=== PATIENT | male | born 1955 | race Caucasian/White ===

== ENCOUNTER 2016-07-01 07:55 | Day surgery (SDC) | payer BC ==
[~2016-07-01 07:55] MED LIST: Metoclopramide 10 MG/2 ML SDV IV PRN; Sodium Chloride 0.9% 1,000 ML IV SCH; Sodium Chloride 0.9% 10 ML Syringe FLUSH PRN
[2016-07-01 11:47] VITALS: BP 130/83
--- NOTE | 2016-07-01 19:08 | OR ---
DATE OF OPERATION: 07/01/2016 PREOPERATIVE DIAGNOSIS: Screening colonoscopy. POSTOPERATIVE DIAGNOSES: 1. Ascending colon polyp. 2. Otherwise normal colonoscopy. OPERATION: Screening colonoscopy. COMPLICATIONS: None. DRAINS: None. SPECIMENS: Ascending colon polyp. ESTIMATED BLOOD LOSS: Minimal. ANESTHESIA: General propofol anesthesia. INDICATION: Mr. Lincoln is a 60-year-old gentleman who is here for his primary screening colonoscopy. He is considered high risk due to a first-degree relative with colon cancer. The above-mentioned procedure was explained. The risks, benefits, and complications were explained. The patient understood and agreed, and he was brought to the operating room. DESCRIPTION OF PROCEDURE: The patient was brought to the operating room and placed in a left lateral decubitus position on the operating room table. Satisfactory general propofol anesthesia was administered. We began by performing a rectal examination, which is within normal limits. We then placed the endoscope by finger introduction into the rectum and subsequently advanced this to the level of the cecum. Cecum was identified by the ileocecal valve, the appendiceal orifice, as well as the cecal strap. Careful evaluation of the mucosa was performed on withdrawal, which revealed no significant abnormalities. No neoplastic growths. No diverticula or telangiectasias. There was a polyp in the ascending colon. This was a small, broad-based, and was removed very easily with a cold biopsy polypectomy. All fragments were retrieved and the polyp was completely removed. Hemostasis was satisfactory. No other findings in the remainder of the colon. We then performed a retroflexion maneuver in the rectum, which revealed no significant findings. The colon was decompressed and the endoscope was withdrawn. The patient tolerated the procedure well. There were no complications. Instrument count was correct. The patient was awoken in the OR and taken to PACU for recovery. KITTY/AMERICO /[id number]
== END 2016-07-01 11:40 | disposition home or self-care (01) ==
LOC: LB.SDS 07:55
PROVIDERS: ATTEND Surgery
DX: Z12.11 Encounter for screening for malignant neoplasm of colon (principal); D12.2 Benign neoplasm of ascending colon; I10 Essential (primary) hypertension; Z79.899 Other long term (current) drug therapy
CPT/HCPCS: 45380; 82962; 88305; J7040

== ENCOUNTER 2020-06-25 07:53 | Day surgery (SDC) | payer MEDICARE ==
[2020-06-25] MEDS ORDERED: Metoclopramide 10 MG/2 ML SDV IV PRN (08:00)
[2020-06-25] MEDS: Sodium Chloride 0.9% 1,000 ML IV SCH (08:25)
[2020-06-25] MEDS ORDERED: Propofol 200 MG/20 ML SDV ONE (08:58)
[2020-06-25 09:46] VITALS: BP 116/68; PULSE 59
--- NOTE | 2020-06-25 12:09 | OR ---
DATE OF OPERATION: 06/25/2020 SURGEON: Devante Cantu MD PREOPERATIVE DIAGNOSIS: Chronic diarrhea. POSTOPERATIVE DIAGNOSIS: Chronic diarrhea. PROCEDURE PERFORMED: Colonoscopy with biopsies. ANESTHESIA: MAC. ESTIMATED BLOOD LOSS: Minimal. COMPLICATIONS: None. INDICATION FOR THE PROCEDURE: The patient is a 64-year-old male who has had a history of chronic diarrhea for the past year or two, has had negative stool studies to date. Last colonoscopy was 4 years ago and was unremarkable. The patient is brought to the OR today for colonoscopy. DESCRIPTION OF PROCEDURE: Informed consent was obtained from the patient. The patient was taken to the operating room, and placed on table in left lateral decubitus position. Monitored anesthesia care was administered. Digital rectal exam performed, it was normal. Colonoscope then advanced through the anus, directed toward the cecum. Cecum was reached and identified by appendiceal orifice and ileocecal valve. The ileocecal valve was intubated and terminal ileum did appear normal. Colonoscope then slowly withdrawn. Multiple cold forceps biopsies were taken throughout the colon to check in for microscopic colitis. The colon was also otherwise unremarkable. Colonoscope then withdrawn. FINDINGS: Normal terminal ileum, normal colon. Multiple biopsies taken. RECOMMENDATIONS: We will follow up on biopsies, and if positive for microscopic colitis, would treat with oral steroids. If negative, would recommend repeat screening colonoscopy in 10 years and symptomatic relief for his diarrhea. MONE/AMERICO /[id number]
== END 2020-06-25 10:33 | disposition home or self-care (01) ==
LOC: LB.SDS 07:53
PROVIDERS: ATTEND Surgery
DX: K52.9 Noninfective gastroenteritis and colitis, unspecified (principal); K63.89 Other specified diseases of intestine; I10 Essential (primary) hypertension; E11.9 Type 2 diabetes mellitus without complications; E78.00 Pure hypercholesterolemia, unspecified; E78.5 Hyperlipidemia, unspecified
CPT/HCPCS: 82962; J2704; J7030

== ENCOUNTER 2020-09-06 13:19 | Emergency (ER) | payer MEDICARE ==
[2020-09-06 13:41] VITALS: BP 131/80; PULSE 85
[2020-09-06] MEDS ORDERED: Acetaminophen/HYDROcodone 325-5 MG Tab ONE (14:00)
--- NOTE | 2020-09-06 15:43 | ER ---
HISTORY OF PRESENT ILLNESS: A 65-year-old male who comes in with his with complaints of falling at their camp site. He landed on an extension cord. He injured the left anterior chest wall and his left wrist. The patient states it hurts when he takes a deep breath. He is concerned that he broke some ribs. He denies any head or neck injuries and has not been nauseated or vomiting. OBJECTIVE: GENERAL APPEARANCE: The patient is awake and alert. No obvious distress. VITAL SIGNS: Reviewed. He is afebrile. Blood pressure 131/80, O2 saturations are 100%. CHEST: The patient has tenderness with palpation over the left upper chest wall but below the clavicle. Skin is intact. He can take about 50% of a deep breath before the pain stops him. I can hear a little bit of air exchange throughout the left lung castanon. EXTREMITIES: Examining the left wrist reveals skin is intact. There is no pain with palpation of the wrist but with flexion and extension, it is tender. LABORATORY DATA AND X-RAY: Left wrist x-rays were obtained. I can see a lucency through the distal radius, but it does not appear to be anything new. I do not see any other acute abnormalities with the wrist. Looking at the rib x-rays, I do not see any obvious rib fractures. DIAGNOSIS: Contusion injury to chest wall and left wrist. TREATMENT PLAN: The patient was given a wrist brace. He is to wear this for few days. He will be given Motrin or told to use Motrin. He tells me that he has this at home 600 mg t.i.d. for 3 or 4 days and then start weaning down off it. I will also give him some Duncan tablets to use p.r.n., and lastly, we will call with the radiologist report when it is available involving the rib x-rays. The patient agrees with the treatment plan and has no further questions. CRS/MODL /[id number]
--- NOTE | 2020-09-07 09:24 | CR ---
Date of Service: 09/06/20 Clinical Data: chest wall pain after falling. LEFT RIBS: No priors. There are mildly displaced fractures of the left 7th and 6th ribs laterally. No other rib abnormalities. No pneumothorax. No pleural effusion. There is degenerative disk disease throughout the thoracic spine. [id number] [facility]
--- NOTE | 2020-09-07 10:22 | CR ---
DATE OF SERVICE: 09/06/2020 CLINICAL DATA: Fall Left wrist: There are no priors. There are osteoarthritic changes involving multiple joints. The base of the 1st metacarpal is partially subluxed laterally with respect to the greater multangular carpal bone. No acute fracture or dislocation. No lytic or blastic bone lesions. There are vascular calcifications in the soft tissues. MTDD
== END 2020-09-06 14:05 | disposition home or self-care (01) ==
LOC: LB.ED 13:19
DX: S20.212A Contusion of left front wall of thorax, initial encounter (principal); S60.212A Contusion of left wrist, initial encounter; W18.39XA Other fall on same level, initial encounter
CPT/HCPCS: 71100; 73110; 99283; A9270

== ENCOUNTER 2020-10-16 14:26 | Emergency (ER) | payer MEDICARE ==
[2020-10-16 15:58] VITALS: BP 128/68; PULSE 75
--- NOTE | 2020-10-16 16:38 | EDM.PDOC ---
ED HPI GENERAL MEDICAL PROBLEM - General Stated Complaint: POSSIBLE STROKE Time Seen by Provider: 10/16/20 15:00 - History of Present Illness INITIAL COMMENTS - FREE TEXT/NARRATIVE: Pt comes to the ER today C/O multiple short episodes of feeling funny. He feels like he is blacking out or a second or 2. It also feels like an electrical current is in his body. No C/O chest pain - H/A - cough SOB, or recent injury. He has been evaluated already once a couple days ago for this with no acute findings. He is not taking any new meds. - Related Data Allergies Allergy/AdvReac Type Severity Reaction Status Date / Time No Known Allergies Allergy Verified 09/06/20 13:35 Home Meds: Home Meds Cholecalciferol (Vitamin D3) [Vitamin D3] 1,000 unit PO DAILY 02/20/16 [History] Cinnamon Bark [Cinnamon] 500 mg PO DAILY 02/20/16 [History] Fenofibrate 160 mg PO DAILY 02/20/16 [History] Garlic 1,000 mg PO DAILY 02/20/16 [History] Lovastatin [Mevacor] 80 mg PO QPM 02/20/16 [History] [place]-3/DHA/Epa/Fish Oil [Fish Oil 1,000 mg Softgel] 1 each PO DAILY 02/20/16 [History] glipiZIDE [Glipizide] 10 mg PO BIDMEALS 02/20/16 [History] metFORMIN [Glucophage] 1,000 mg PO BIDMEALS 02/20/16 [History] tadalafiL [Cialis] 5 mg PO DAILY PRN 02/20/16 [History] lisinopriL [Lisinopril] 10 mg PO DAILY 07/25/20 [History] Past Medical History HEENT History: Reports: Hard of Hearing Cardiovascular History: Reports: High Cholesterol, Hypertension Respiratory History: Reports: None Gastrointestinal History: Reports: None Musculoskeletal History: Reports: Back Pain, Chronic, Other (See Below) Other Musculoskeletal History: back surgery Endocrine/Metabolic History: Reports: Diabetes, Type II Oncologic (Cancer) History: Reports: None - Past Surgical History HEENT Surgical History: Reports: Other (See Below) Other HEENT Surgeries/Procedures: surgery to fix broken nose Other Neurological Surgeries/Procedures: no sensation changes in the LE. no pain in LEs Social & Family History - Family History Family Medical History: No Pertinent Family History Oncologic: Reports: Colon Other Oncologic Family History: brother - Caffeine Use Caffeine Use: Reports: Coffee ED ROS GENERAL - Review of Systems Review Of Systems: Comprehensive ROS is negative, except as noted in HPI. Neurological: Reports: Other (episodes of tingling and feels like he is blacking out for 1-2 seconds.) ED EXAM, NEURO - Physical Exam Exam: See Below Eye Exam: Bilateral Eye: EOMI, PERRL Neurological: Alert, Normal Mood/Affect, CN II-XII Intact, Normal Gait, No Motor/Sensory Deficits Course - Vital Signs Last Recorded V/S: Last Vital Signs Temp Pulse 75 10/16/20 15:55 Resp 16 10/16/20 15:55 BP 128/68 10/16/20 15:55 Pulse Ox 97 10/16/20 15:55 - Orders/Labs/Meds Orders: Active Orders 24 hr Category Date Time Status EKG Documentation Completion [RC] ASDIRECTED Care 10/16/20 15:21 Active Head wo Cont [CT] Stat Exams 10/16/20 14:39 Taken Labs: Laboratory Tests 10/16/20 10/16/20 10/16/20 Range/Units 15:44 15:44 15:44 WBC 8.0 (4.0-11.0) K/uL RBC 4.44 L (4.50-6.50) M/uL Hgb 13.6 (13.0-18.0) g/dL Hct 40.0 (40.0-54.0) % MCV 90 (76-96) fL MCH 30.6 (27.0-32.0) pg MCHC 34.0 (31.0-35.0) g/dL RDW 13.5 (11.0-16.0) % Plt Count 235 (150-400) K/uL MPV 10.6 H (6.0-10.0) fL Neut % (Auto) 61.7 (45.0-70.0) % Lymph % (Auto) 22.5 (20.0-40.0) % [place] % (Auto) 9.2 (3.0-10.0) % Eos % (Auto) 5.6 H (1.0-5.0) % Baso % (Auto) 1.0 H (0.0-0.5) % Neut # (Auto) 4.92 (2.00-7.50) K/uL Lymph # (Auto) 1.79 (1.50-4.00) K/uL [place] # (Auto) 0.73 (0.20-0.80) K/uL Eos # (Auto) 0.45 H (0.04-0.40) K/uL Baso # (Auto) 0.08 (0.02-0.10) K/uL D-Dimer, Quantitative < 100 (0-400) ng/mL Sodium 134 L (136-145) mmol/L Potassium 4.3 (3.5-5.1) mmol/L Chloride 100 (98-107) mmol/L Carbon Dioxide 27.9 (21.0-32.0) mmol/L Anion Gap 10.4 (5.0-15.0) mmol/L BUN 16 (8-26) mg/dL Creatinine 1.41 H (0.70-1.30) mg/dL Est Cr Clr Drug Dosing 50.84 mL/min Estimated GFR (MDRD) 50 L (>60) MLS/MIN BUN/Creatinine Ratio 11.3 (6-25) Glucose 156 H D (74-100) mg/dL Calcium 9.6 (8.5-10.1) mg/dL Total Bilirubin 0.3 (0.0-1.0) mg/dL AST 15 (15-37) U/L ALT 23 (12-78) U/L Alkaline Phosphatase 63 (46-116) U/L Troponin I < 0.017 (0.000-0.060) ng/mL Total Protein 7.0 (6.4-8.2) g/dL Albumin 3.9 (3.4-5.0) g/dL Globulin 3.1 (2.2-4.2) g/dL Albumin/Globulin Ratio 1.3 (0.8-2.0) - Re-Assessments/Exams Free Text/Narrative Re-Assessment/Exam: 10/16/20 16:37 V.S are nml. Head CT is negative. Pt has had several episodes while in the ER, but are hard to see. One episode he let out a small gasp, but said it was over right after. I did consult his clinic provider who will get a heart monitor applied and agreed to refer him to Neurology JASSI. 10/16/20 16:40 Departure - Departure Time of Disposition: 16:30 Disposition: Home, Self-Care 01 Condition: Good Clinical Impression: Neurological deficit, transient - Discharge Information *PRESCRIPTION DRUG MONITORING PROGRAM REVIEWED*: Not Applicable *COPY OF PRESCRIPTION DRUG MONITORING REPORT IN PATIENT DILIP: Not Applicable Instructions: Warning Signs of a Stroke, Ambulatory Cardiac Monitoring Referrals: PCP,None [Primary Care Provider] - Additional Instructions: appointment being scheduled with Neurology thru his clinic provider. return to ED if s/s worsen or if you would like to see a Neuro specialist prior to appointment next week. Take baby aspirin as directed. 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 Sepsis Event Note (ED) - Evaluation Sepsis Screening Result: No Definite Risk - Focused Exam Vital Signs: Vital Signs Pulse Resp BP Pulse Ox 10/16/20 15:55 75 16 128/68 97 - My Orders Last 24 Hours: My Active Orders 10/16/20 14:39 Head wo Cont [CT] Stat 10/16/20 15:21 EKG Documentation Completion [RC] ASDIRECTED - Assessment/Plan Last 24 Hours: My Active Orders 10/16/20 14:39 Head wo Cont [CT] Stat 10/16/20 15:21 EKG Documentation Completion [RC] ASDIRECTED
--- NOTE | 2020-10-16 16:51 | CT ---
DATE OF SERVICE: 10/16/2020 CLINICAL DATA: Possible stroke Unenhanced brain CT: Multi slice acquisition through the brain without IV contrast was performed. Comparison is made to a prior exam dated 15 October 2020. No changes. No acute intracranial abnormalities. MTDD
== END 2020-10-16 16:00 | disposition home or self-care (01) ==
LOC: LB.ED 14:26
DX: R29.818 Other symptoms and signs involving the nervous system (principal); E78.00 Pure hypercholesterolemia, unspecified; I10 Essential (primary) hypertension; E11.9 Type 2 diabetes mellitus without complications; Z79.84 Long term (current) use of oral hypoglycemic drugs; Z79.899 Other long term (current) drug therapy
CPT/HCPCS: 36415; 70450; 80053; 84484; 85025; 85379; 93005; 99284-25

== ENCOUNTER 2020-10-24 16:54 | Emergency (ER) | payer MEDICARE ==
[2020-10-24] MEDS ORDERED: Sodium Chloride 0.9% 10 ML Syringe FLUSH PRN (17:11)
[2020-10-24] MEDS: Aspirin 81 MG Tab.Chew PO ONE ×2 (17:30→18:20)
--- NOTE | 2020-10-24 17:57 | EDM.PDOC ---
ED HPI GENERAL MEDICAL PROBLEM - General Chief Complaint: Neuro Symptoms/Deficits Stated Complaint: possible stroke Time Seen by Provider: 10/24/20 17:11 Source of Information: Reports: Patient, Significant Other History Limitations: Reports: No Limitations - History of Present Illness INITIAL COMMENTS - FREE TEXT/NARRATIVE: pt presents to the ER accompanied by significant other who also provides history. pt states right arm spasticity and feeling right sided weakness as well as some dysarthria. onset he states was approx. 3 weeks ago only occurring intermittently but today at 1300 the spasticity and the dysarthria became significantly more prominent and continuous without relief. pt denies fever, chills, nausea, vomiting, recent head injury, changes in vision. pt states no alcohol intake for 40 years, no recent street drug use. he does chew tobacco. he has had previous head CT without abnormality. MRI on on outpatient basis without results at this time. medical hx of DM ii controlled with glipizide and metformin; and htn on lisinopril. - Related Data Allergies Allergy/AdvReac Type Severity Reaction Status Date / Time No Known Allergies Allergy Verified 09/06/20 13:35 Home Meds: Home Meds Cholecalciferol (Vitamin D3) [Vitamin D3] 1,000 unit PO DAILY 02/20/16 [History] Cinnamon Bark [Cinnamon] 500 mg PO DAILY 02/20/16 [History] Fenofibrate 160 mg PO DAILY 02/20/16 [History] Garlic 1,000 mg PO DAILY 02/20/16 [History] Lovastatin [Mevacor] 80 mg PO QPM 02/20/16 [History] [place]-3/DHA/Epa/Fish Oil [Fish Oil 1,000 mg Softgel] 1 each PO DAILY 02/20/16 [History] glipiZIDE [Glipizide] 10 mg PO BIDMEALS 02/20/16 [History] metFORMIN [Glucophage] 1,000 mg PO BIDMEALS 02/20/16 [History] tadalafiL [Cialis] 5 mg PO DAILY PRN 02/20/16 [History] lisinopriL [Lisinopril] 10 mg PO DAILY 07/25/20 [History] Past Medical History HEENT History: Reports: Hard of Hearing Cardiovascular History: Reports: High Cholesterol, Hypertension Respiratory History: Reports: None Gastrointestinal History: Reports: None Musculoskeletal History: Reports: Back Pain, Chronic, Other (See Below) Other Musculoskeletal History: back surgery Endocrine/Metabolic History: Reports: Diabetes, Type II Oncologic (Cancer) History: Reports: None - Past Surgical History HEENT Surgical History: Reports: Other (See Below) Other HEENT Surgeries/Procedures: surgery to fix broken nose Other Neurological Surgeries/Procedures: no sensation changes in the LE. no pain in LEs Social & Family History - Family History Family Medical History: No Pertinent Family History Oncologic: Reports: Colon Other Oncologic Family History: brother - Caffeine Use Caffeine Use: Reports: Coffee ED ROS GENERAL - Review of Systems Review Of Systems: Comprehensive ROS is negative, except as noted in HPI. ED EXAM, GENERAL - Physical Exam Exam: See Below Exam Limited By: No Limitations General Appearance: Alert, WD/WN Eye Exam: Bilateral Eye: EOMI, PERRL Nose: Normal Inspection, Normal Mucosa Throat/Mouth: Normal Inspection, Normal Teeth, Normal Gums, Normal Oropharynx, Other (dysarthria) Head: Atraumatic, Normocephalic Respiratory/Chest: No Respiratory Distress, Lungs Clear, Normal Breath Sounds, No Accessory Muscle Use, Chest Non-Tender Cardiovascular: Normal Peripheral Pulses, Regular Rate, Rhythm, No Edema, No Murmur Peripheral Pulses: 2+: Brachial (L), Brachial (R), Posterior Tibial (L), Posterior Tibial (R) GI/Abdominal: Soft, Non-Tender Extremities: Non-Tender, No Pedal Edema, Normal Capillary Refill Neurological: Alert, Oriented, Normal Cognition, Abnormal Gait, Other (right arm ataxia, dysmetria. irregular spastic movements. R arm and leg slightly weaker than left but no drift on NIH.) Psychiatric: Normal Affect, Anxious Skin Exam: Warm, Dry, Intact, Normal Color, No Rash Lymphatic: No Adenopathy #1 Interpretation EKG Date: 10/24/20 Time: 17:54 Rhythm: NSR [place]: Normal P-Wave: Present QRS: Normal ST-T: Normal QT: Normal Comparison: No Change Course - Vital Signs Last Recorded V/S: Last Vital Signs Temp 97.6 F 10/24/20 18:41 Pulse 82 10/24/20 18:45 Resp 16 10/24/20 18:45 BP 140/76 10/24/20 18:45 Pulse Ox 98 10/24/20 18:45 - Orders/Labs/Meds Orders: Active Orders 24 hr Category Date Time Status Assess Neurological Status [RC] CONTINUOUS Care 10/24/20 17:11 Ordered Cardiac Monitoring [RC] CONTINUOUS Care 10/24/20 17:11 Ordered Communication Order [RC] STAT Care 10/24/20 17:11 Ordered EKG Documentation Completion [RC] ASDIRECTED Care 10/24/20 17:11 Ordered Height and Weight [RC] UPON Care 10/24/20 17:11 Ordered NIH Stroke Scale [RC] Q15M Care 10/24/20 17:11 Ordered NIH Stroke Scale [RC] STAT Care 10/24/20 17:11 Ordered Oxygen Therapy, ED [RC] ASDIRECTED Care 10/24/20 17:11 Ordered Vital Signs [RC] Q15M Care 10/24/20 17:11 Ordered [place] Bedside Swallow Assessment [RC] ASDIRECTED Care 10/24/20 17:11 Ordered Chest 1V Frontal [CR] Stat Exams 10/24/20 17:09 Ordered Head wo Cont [CT] Stat Exams 10/24/20 17:09 Ordered Sodium Chloride 0.9% [Saline Flush] Med 10/24/20 17:11 Active 10 ml FLUSH ASDIRECTED PRN Peripheral IV Insertion Adult [OM.PC] Stat Oth 10/24/20 17:11 Ordered Peripheral IV Insertion Adult [OM.PC] Stat Oth 10/24/20 17:11 Ordered Resuscitation Status Stat Resus Stat 10/24/20 17:11 Ordered EKG 12 Lead [EK] Routine Ther 10/24/20 17:09 Ordered Medication Orders Sodium Chloride (Sodium Chloride 0.9% 10 Ml Syringe) 10 ml FLUSH ASDIRECTED PRN PRN Reason: Keep Vein Open Last Admin: 10/24/20 18:40 Dose: 10 ml Documented by: AUSTYN Labs: Laboratory Tests 10/24/20 10/24/20 10/24/20 Range/Units 17:20 17:25 17:31 WBC 10.5 D (4.0-11.0) K/uL RBC 4.79 (4.50-6.50) M/uL Hgb 14.6 (13.0-18.0) g/dL Hct 41.8 (40.0-54.0) % MCV 87 (76-96) fL MCH 30.5 (27.0-32.0) pg MCHC 34.9 (31.0-35.0) g/dL RDW 13.1 (11.0-16.0) % Plt Count 273 (150-400) K/uL MPV 10.3 H (6.0-10.0) fL Neut % (Auto) 71.0 H (45.0-70.0) % Lymph % (Auto) 16.9 L (20.0-40.0) % [place] % (Auto) 9.3 (3.0-10.0) % Eos % (Auto) 2.0 (1.0-5.0) % Baso % (Auto) 0.8 H (0.0-0.5) % Neut # (Auto) 7.45 (2.00-7.50) K/uL Lymph # (Auto) 1.77 (1.50-4.00) K/uL [place] # (Auto) 0.97 H (0.20-0.80) K/uL Eos # (Auto) 0.21 (0.04-0.40) K/uL Baso # (Auto) 0.08 (0.02-0.10) K/uL PT 10.7 (9.0-11.5) sec INR 1.1 (1.0-3.5) APTT 24.8 (24.4-33.2) SECONDS Sodium 127 L (136-145) mmol/L Potassium 4.1 (3.5-5.1) mmol/L Chloride 96 L (98-107) mmol/L Carbon Dioxide 24.7 (21.0-32.0) mmol/L Anion Gap 10.4 (5.0-15.0) mmol/L BUN 15 (8-26) mg/dL Creatinine 1.22 (0.70-1.30) mg/dL Est Cr Clr Drug Dosing TNP Estimated GFR (MDRD) 59 L (>60) MLS/MIN BUN/Creatinine Ratio 12.3 (6-25) Glucose 151 H (74-100) mg/dL Calcium 9.0 (8.5-10.1) mg/dL Total Bilirubin 0.3 (0.0-1.0) mg/dL AST 20 (15-37) U/L ALT 23 (12-78) U/L Alkaline Phosphatase 58 (46-116) U/L Troponin I < 0.017 (0.000-0.060) ng/mL Total Protein 7.6 (6.4-8.2) g/dL Albumin 4.2 (3.4-5.0) g/dL Globulin 3.4 (2.2-4.2) g/dL Albumin/Globulin Ratio 1.2 (0.8-2.0) Meds: Medications Generic Name Dose Route Start Last Admin Trade Name Freq PRN Reason Stop Dose Admin Sodium Chloride 10 ml 10/24/20 17:11 10/24/20 18:40 Sodium Chloride 0.9% 10 Ml Syringe FLUSH 10 ml ASDIRECTED PRN Administration Keep Vein Open Discontinued Medications Generic Name Dose Route Start Last Admin Trade Name Freq PRN Reason Stop Dose Admin Aspirin 324 mg 10/24/20 17:11 10/24/20 18:20 Aspirin 81 Mg Tab.Chew PO 10/24/20 17:12 324 mg ONETIME ONE Administration Levetiracetam 500 mg/ Sodium 105 mls @ 400 mls/hr 10/24/20 19:06 Chloride IV 10/24/20 19:20 ONETIME ONE Lorazepam 2 mg 10/24/20 18:16 10/24/20 18:21 Lorazepam 2 Mg/Ml Sdv IVPUSH 10/24/20 18:17 2 mg ONETIME ONE Administration - Radiology Interpretation Free Text/Narrative:: no noted bleed, midline shift or mass effect. - Re-Assessments/Exams Free Text/Narrative Re-Assessment/Exam: NIH on arrival of 2: 1 for dysarthria and 1 for ataxia 1815: discussion with stroke neurology of [facility] who recommend 2mg of ativan and potential 2g 10/24/20 19:[address] Mares of [facility] who accepted pt for admission Departure - Departure Time of Disposition: 19:08 Disposition: DC/Tfer to Acute Hospital 02 Condition: Good Clinical Impression: New onset seizure, Hyponatremia - Discharge Information *PRESCRIPTION DRUG MONITORING PROGRAM REVIEWED*: No *COPY OF PRESCRIPTION DRUG MONITORING REPORT IN PATIENT DILIP: No Forms: ED Department Discharge Sepsis Event Note (ED) - Focused Exam Vital Signs: Vital Signs Temp Pulse Resp BP Pulse Ox 10/24/20 18:45 82 16 140/76 98 10/24/20 18:41 97.6 F 74 16 162/88 H 97 10/24/20 18:11 76 16 162/88 H 98 10/24/20 17:26 98.0 F 74 16 159/84 H 98 10/24/20 17:11 98.0 F 90 16 159/84 H 98 - Problem List & Annotations (1) Hyponatremia SNOMED Code(s): 03719410 Code(s): E87.1 - HYPO-OSMOLALITY AND HYPONATREMIA Status: Acute (2) New onset seizure SNOMED Code(s): 69866852 Code(s): R56.9 - UNSPECIFIED CONVULSIONS Status: Acute - Problem List Review Problem List Initiated/Reviewed/Updated: Yes - My Orders Last 24 Hours: My Active Orders 10/24/20 17:09 Chest 1V Frontal [CR] Stat Head wo Cont [CT] Stat EKG 12 Lead [EK] Routine 10/24/20 17:11 Assess Neurological Status [RC] CONTINUOUS Cardiac Monitoring [RC] CONTINUOUS Communication Order [RC] STAT EKG Documentation Completion [RC] ASDIRECTED Height and Weight [RC] UPON NIH Stroke Scale [RC] Q15M NIH Stroke Scale [RC] STAT Oxygen Therapy, ED [RC] ASDIRECTED Vital Signs [RC] Q15M [place] Bedside Swallow Assessment [RC] ASDIRECTED Sodium Chloride 0.9% [Saline Flush] 10 ml FLUSH ASDIRECTED PRN Peripheral IV Insertion Adult [OM.PC] Stat Peripheral IV Insertion Adult [OM.PC] Stat Resuscitation Status Stat - Assessment/Plan Last 24 Hours: My Active Orders 10/24/20 17:09 Chest 1V Frontal [CR] Stat Head wo Cont [CT] Stat EKG 12 Lead [EK] Routine 10/24/20 17:11 Assess Neurological Status [RC] CONTINUOUS Cardiac Monitoring [RC] CONTINUOUS Communication Order [RC] STAT EKG Documentation Completion [RC] ASDIRECTED Height and Weight [RC] UPON NIH Stroke Scale [RC] Q15M NIH Stroke Scale [RC] STAT Oxygen Therapy, ED [RC] ASDIRECTED Vital Signs [RC] Q15M [place] Bedside Swallow Assessment [RC] ASDIRECTED Sodium Chloride 0.9% [Saline Flush] 10 ml FLUSH ASDIRECTED PRN Peripheral IV Insertion Adult [OM.PC] Stat Peripheral IV Insertion Adult [OM.PC] Stat Resuscitation Status Stat Assessment:: assessment: hyponatremia; new onset seizure plan: hyponatremia of 127. will hold intervention due to BLS crew transport transport to [facility] accepting physician Dr. Mares for further evaluation, monitoring, and referrals as needed. ED course included CT head, EKG of sinus rhythm, negative CXR and 2mg ativan as well as 500mg keppra for seizure control.
[2020-10-24] MEDS ORDERED: LORazepam 2 MG/ML SDV IVPUSH ONE (18:16)
[2020-10-24 18:52] VITALS: BP 140/76; PULSE 82
[2020-10-24] MEDS ORDERED: levETIRAcetam 500 MG in Sodium Chloride 0.9% 100 ML IV ONE (19:06)
--- NOTE | 2020-10-26 07:32 | CT ---
DATE OF SERVICE: 10/24/20 CLINICAL DATA: neuro change UNENHANCED BRAIN CT: Multislice acquisition through the brain without IV contrast was performed. No priors. There is mild atrophy. There are periventricular lucencies bilaterally consistent with small vessel ischemic change. No masses or mass effect. No intracranial hemorrhage. No evidence of acute or subacute infarct. No osseous abnormalities. IMPRESSION: No acute intracranial abnormalities. [id number] [facility]
--- NOTE | 2020-10-26 07:41 | CR ---
DATE OF SERVICE: 10/24/20 CLINICAL DATA: neuro change AP CHEST: Comparison is made to a prior exam dated 10/14/20. The patient has taken a very poor inspiration. The heart size is within normal limits. There is subtle increased density in the right mid lung which may be an area of infiltrate or atelectasis. The lungs are otherwise clear. No pneumothorax. No pleural effusions. There are subacute fractures of the left 3rd and 4th ribs. [id number] [facility]
== END 2020-10-24 20:10 ==
LOC: LB.ED 16:54
DX: R56.9 Unspecified convulsions (principal); E87.1 Hypo-osmolality and hyponatremia; E78.00 Pure hypercholesterolemia, unspecified; I10 Essential (primary) hypertension; E11.9 Type 2 diabetes mellitus without complications; F17.220 Nicotine dependence, chewing tobacco, uncomplicated; Z79.84 Long term (current) use of oral hypoglycemic drugs; Z79.899 Other long term (current) drug therapy
CPT/HCPCS: 36415; 70450; 71045; 80053; 84484; 85025; 85610; 85730; 93005; 96374; 96375; 99285; A9270; J1953; J2060; A0425; A0429

== ENCOUNTER 2020-11-28 22:26 | Observation (INO) | payer MEDICARE ==
[2020-11-28] MEDS ORDERED: Aspirin 81 MG Tab.Chew PO STA (22:35)
[2020-11-28] MEDS ORDERED: Sodium Chloride 0.9% 10 ML Syringe FLUSH PRN (22:59)
[2020-11-28] MEDS ORDERED: Nitroglycerin 0.4 MG Tab.SL SL ONE (22:59)
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
[2020-11-28] MEDS ORDERED: Heparin Sodium/D5W 25,000 UNITS/500 ML BAG IV SCH ×2 (23:45)
[2020-11-29] MEDS: Metoprolol Tartrate 25 MG Tab PO SCH ×2 (00:17→12:27)
[2020-11-29] MEDS ORDERED: Heparin Sodium/D5W 25,000 UNITS/500 ML BAG IV SCH (02:45)
[2020-11-29] MEDS ORDERED: Heparin Sodium 5,000 UNITS/0.5 ML Syringe IV ONE (02:45)
[2020-11-29] MEDS ORDERED: Lisinopril 10 MG Tab PO SCH (08:00)
[2020-11-29] MEDS ORDERED: glipiZIDE 5 MG Tab PO SCH (08:00)
[2020-11-29] MEDS ORDERED: metFORMIN 500 MG Tab PO SCH (08:00)
--- NOTE | 2020-11-29 10:56 | PCM.DCSUM1 ---
Discharge Summary - Hospital Course HPI Initial Comments: left arm pain Brief History: patient presented to the ER with a c/o left UE pain and chest discomfort. No h/o CAD. In the ER, ASA 81x4 was given, as well as nitro SL which resolved the pain. EKG NSR. Trop slightly elevated. Heparin bolus and drip were started. was admitted to observation bed for trop trend, and heparin drip. Diagnosis: Stroke: No - Discharge Data Discharge Date: 11/29/20 Discharge Disposition: DC/Tfer to Acute Hospital 02 Condition: Good - Referral to Home Health Primary Care Physician: PCP None - Discharge Diagnosis/Problem(s) (1) Acute coronary syndrome SNOMED Code(s): 712968529 ICD Code: I24.9 - ACUTE ISCHEMIC HEART DISEASE, UNSPECIFIED Status: Acute Priority: Medium Current Visit: No (2) NSTEMI (non-ST elevated myocardial infarction) SNOMED Code(s): 83496142 ICD Code: I21.4 - NON-ST ELEVATION (NSTEMI) MYOCARDIAL INFARCTION Status: Acute Priority: Medium Current Visit: No - Patient Summary/Data Hospital Course: patient didn't experience any pain since admission vitals remained stable and WNL Metoprolol was started initially ( 25mg po ) due to slight sinus tachycardia to 108. overnight - vitals remained controlled. Symptoms free. Seconds trop trend was higher than before. Called nearby facilities - all on divert and didn't accept the patient. called [facility] - spoke to the hospitalist who accepted the patient - but can't take the patient now until afternoon - due to no bed availability at the moment. - Patient Instructions Diet: Heart Healthy Diet - Discharge Plan *PRESCRIPTION DRUG MONITORING PROGRAM REVIEWED*: Not Applicable *COPY OF PRESCRIPTION DRUG MONITORING REPORT IN PATIENT DILIP: Not Applicable Home Medications: Home Meds Cholecalciferol (Vitamin D3) [Vitamin D3] 1,000 unit PO DAILY 02/20/16 [History] Cinnamon Bark [Cinnamon] 500 mg PO DAILY 02/20/16 [History] Fenofibrate 160 mg PO DAILY 02/20/16 [History] Garlic 1,000 mg PO DAILY 02/20/16 [History] Lovastatin [Mevacor] 80 mg PO QPM 02/20/16 [History] [place]-3/DHA/Epa/Fish Oil [Fish Oil 1,000 mg Softgel] 1 each PO DAILY 02/20/16 [History] glipiZIDE [Glipizide] 10 mg PO BIDMEALS 02/20/16 [History] metFORMIN [Glucophage] 1,000 mg PO BIDMEALS 02/20/16 [History] tadalafiL [Cialis] 5 mg PO DAILY PRN 02/20/16 [History] lisinopriL [Lisinopril] 10 mg PO DAILY 07/25/20 [History] Forms: ED Department Discharge Referrals: PCP,None [Primary Care Provider] - - Discharge Summary/Plan Comment DC Time >30 min.: Yes Total # of Minutes for Discharge Time: 40 - General Info Date of Service: 11/29/20 Functional Status: Reports: Pain Controlled, Tolerating Diet, New Symptoms - Review of Systems General: Reports: No Symptoms HEENT: Reports: No Symptoms Pulmonary: Reports: No Symptoms Cardiovascular: Reports: No Symptoms Gastrointestinal: Reports: No Symptoms Genitourinary: Reports: No Symptoms Musculoskeletal: Reports: No Symptoms Skin: Reports: No Symptoms Neurological: Reports: No Symptoms - Patient Data Vitals - Most Recent: Last Vital Signs Temp 36.3 C 11/29/20 07:00 Pulse 67 11/29/20 10:35 Resp 20 11/29/20 10:35 BP 100/62 11/29/20 10:35 Pulse Ox 97 11/29/20 10:35 Weight - Most Recent: 82.3 kg I&O - Last 24 hours: Intake & Output 11/28/20 11/29/20 11/29/20 22:59 06:59 14:59 Intake Total 183 Balance 183 Lab Results - Last 24 hrs: Laboratory Results - last 24 hr 11/28/20 11/28/20 11/28/20 Range/Units 22:50 22:50 22:50 WBC 8.8 (4.0-11.0) K/uL RBC 4.64 (4.50-6.50) M/uL Hgb 14.3 (13.0-18.0) g/dL Hct 40.8 (40.0-54.0) % MCV 88 (76-96) fL MCH 30.8 (27.0-32.0) pg MCHC 35.0 (31.0-35.0) g/dL RDW 14.2 (11.0-16.0) % Plt Count 257 (150-400) K/uL MPV 9.9 (6.0-10.0) fL Neut % (Auto) 74.9 H (45.0-70.0) % Lymph % (Auto) 15.2 L (20.0-40.0) % [place] % (Auto) 7.5 (3.0-10.0) % Eos % (Auto) 1.3 (1.0-5.0) % Baso % (Auto) 1.1 H (0.0-0.5) % Neut # (Auto) 6.55 (2.00-7.50) K/uL Lymph # (Auto) 1.33 L (1.50-4.00) K/uL [place] # (Auto) 0.66 (0.20-0.80) K/uL Eos # (Auto) 0.11 (0.04-0.40) K/uL Baso # (Auto) 0.10 (0.02-0.10) K/uL PT 9.3 (9.0-11.5) sec INR 0.9 L (1.0-3.5) APTT (24.4-33.2) SECONDS Sodium 132 L (136-145) mmol/L Potassium 3.8 (3.5-5.1) mmol/L Chloride 98 (98-107) mmol/L Carbon Dioxide 22.9 (21.0-32.0) mmol/L Anion Gap 14.9 (5.0-15.0) mmol/L BUN 23 D (8-26) mg/dL Creatinine 1.16 (0.70-1.30) mg/dL Est Cr Clr Drug Dosing TNP Estimated GFR (MDRD) > 60 (>60) MLS/MIN BUN/Creatinine Ratio 19.8 (6-25) Glucose 333 H D (74-100) mg/dL Calcium 9.0 (8.5-10.1) mg/dL Troponin I 0.187 H* D (0.000-0.060) ng/mL SARS-CoV-2 RNA (LACEY) (NEGATIVE) 11/28/20 11/29/20 11/29/20 Range/Units 23:32 07:26 08:40 WBC (4.0-11.0) K/uL RBC (4.50-6.50) M/uL Hgb (13.0-18.0) g/dL Hct (40.0-54.0) % MCV (76-96) fL MCH (27.0-32.0) pg MCHC (31.0-35.0) g/dL RDW (11.0-16.0) % Plt Count (150-400) K/uL MPV (6.0-10.0) fL Neut % (Auto) (45.0-70.0) % Lymph % (Auto) (20.0-40.0) % [place] % (Auto) (3.0-10.0) % Eos % (Auto) (1.0-5.0) % Baso % (Auto) (0.0-0.5) % Neut # (Auto) (2.00-7.50) K/uL Lymph # (Auto) (1.50-4.00) K/uL [place] # (Auto) (0.20-0.80) K/uL Eos # (Auto) (0.04-0.40) K/uL Baso # (Auto) (0.02-0.10) K/uL PT (9.0-11.5) sec INR (1.0-3.5) APTT 32.8 D (24.4-33.2) SECONDS Sodium (136-145) mmol/L Potassium (3.5-5.1) mmol/L Chloride (98-107) mmol/L Carbon Dioxide (21.0-32.0) mmol/L Anion Gap (5.0-15.0) mmol/L BUN (8-26) mg/dL Creatinine (0.70-1.30) mg/dL Est Cr Clr Drug Dosing Estimated GFR (MDRD) (>60) MLS/MIN BUN/Creatinine Ratio (6-25) Glucose (74-100) mg/dL Calcium (8.5-10.1) mg/dL Troponin I 0.440 H* D (0.000-0.060) ng/mL SARS-CoV-2 RNA (LACEY) Negative (NEGATIVE) Med Orders - Current: Current Medications Glipizide (Glipizide 5 Mg Tab) 10 mg PO BIDMEALS [facility] Last Admin: 11/29/20 08:37 Dose: 10 mg Documented by: Heparin Sodium/Dextrose (Heparin 25,000 Units In D5w 500 Ml) 25,000 units in 500 mls @ 20 mls/hr IV TITRATE [facility]; Protocol Last Admin: 11/28/20 23:45 Dose: 1,000 units/hr, 20 mls/hr Documented by: Lisinopril (Lisinopril 10 Mg Tab) 10 mg PO DAILY [facility] Lovastatin (Lovastatin 20 Mg Tab) 80 mg PO QPM [facility] Metformin HCl (Metformin 500 Mg Tab) 1,000 mg PO BIDMEALS [facility] Last Admin: 11/29/20 08:38 Dose: 1,000 mg Documented by: Metoprolol Tartrate (Metoprolol Tartrate 25 Mg Tab) 25 mg PO Q12H [facility] Last Admin: 11/29/20 00:17 Dose: 25 mg Documented by: Sodium Chloride (Sodium Chloride 0.9% 10 Ml Syringe) 10 ml FLUSH ASDIRECTED PRN PRN Reason: Keep Vein Open Discontinued Medications Heparin Sodium (Porcine) (Heparin Sodium 5,000 Units/0.5 Ml Syringe) 5,000 units IV ONETIME ONE Stop: 11/29/20 02:46 Last Admin: 11/28/20 23:33 Dose: 5,000 units Documented by: Heparin Sodium/Dextrose (Heparin 25,000 Units In D5w 500 Ml) 25,000 units in 500 mls @ 18.507 mls/hr IV TITRATE [facility]; Protocol Heparin Sodium/Dextrose (Heparin 25,000 Units In D5w 500 Ml) 25,000 units in 500 mls @ 20 mls/hr IV ASDIRECTED [facility] Nitroglycerin (Nitroglycerin 0.4 Mg Tab.Sl) 0.4 mg SL ONETIME ONE Stop: 11/28/20 23:00 Last Admin: 11/28/20 22:38 Dose: 0.4 mg Documented by: - Exam General: Reports: Alert, Oriented Neck: Reports: Supple Lungs: Reports: Clear to Auscultation Cardiovascular: Reports: Regular Rate GI/Abdominal Exam: Normal Bowel Sounds Neurological: Reports: No New Focal Deficit Psy/Mental Status: Reports: Alert #1 Interpretation EKG Date: 11/28/20 Rhythm: NSR [place]: Normal P-Wave: Present QRS: Normal ST-T: Normal QT: Normal
[2020-11-29 11:57] VITALS: BP 96/58; PULSE 66
--- NOTE | 2020-11-30 08:50 | CR ---
Date of Service: 11/28/20 Clinical Data: chest pain PA CHEST: Comparison is made to a prior exam dated 10/24/20. No significant changes from the prior study. No acute abnormalities. [id number] [facility]
== END 2020-11-29 12:50 ==
LOC: LB.ED 22:26 → LB.MS 23:57 → UNDOADMOB 11-29 → UNDODISOB 11-29 12:50
PROVIDERS: ADMIT Surgery; ATTEND Surgery
DX: I21.4 Non-ST elevation (NSTEMI) myocardial infarction (principal); I24.9 Acute ischemic heart disease, unspecified; E11.9 Type 2 diabetes mellitus without complications; E78.00 Pure hypercholesterolemia, unspecified; I10 Essential (primary) hypertension; Z79.899 Other long term (current) drug therapy; Z79.84 Long term (current) use of oral hypoglycemic drugs; Z20.822 Contact with and (suspected) exposure to COVID-19
CPT/HCPCS: 36415; 71045; 80048; 84484; 85025; 85610; 85730; 93005; 96365; 96366; 96374; 96375; 99284-25; A0425; A0429; A9270-GY; G0378; J1644; J1644-GY; U0002

== ENCOUNTER 2021-04-08 08:26 | Emergency (ER) | payer OTHER, MEDICARE ==
[2021-04-08 09:15] VITALS: BP 99/65; PULSE 78
== END 2021-04-08 09:05 | disposition home or self-care (01) ==
LOC: LB.ED 08:26
DX: S00.01XA Abrasion of scalp, initial encounter (principal); E78.00 Pure hypercholesterolemia, unspecified; I10 Essential (primary) hypertension; E11.9 Type 2 diabetes mellitus without complications; Z79.84 Long term (current) use of oral hypoglycemic drugs; Z79.899 Other long term (current) drug therapy; W22.8XXA Striking against or struck by other objects, initial encounter; Y92.89 Other specified places as the place of occurrence of the external cause; Y99.0 Civilian activity done for income or pay
CPT/HCPCS: 99282

== ENCOUNTER 2021-11-30 18:44 | Emergency (ER) | payer MEDICARE ==
[2021-11-30] MEDS: Ketorolac 60 MG/2 ML SDV IM ONE (19:15)
[2021-11-30 19:20] VITALS: BP 121/75; PULSE 77
== END 2021-11-30 19:56 | disposition home or self-care (01) ==
LOC: LB.ED 18:44
DX: S20.212A Contusion of left front wall of thorax, initial encounter (principal); S40.012A Contusion of left shoulder, initial encounter; E78.00 Pure hypercholesterolemia, unspecified; I10 Essential (primary) hypertension; I25.2 Old myocardial infarction; E11.9 Type 2 diabetes mellitus without complications; Z79.84 Long term (current) use of oral hypoglycemic drugs; W01.0XXA Fall on same level from slipping, tripping and stumbling without subsequent striking against object, initial encounter
CPT/HCPCS: 71101-LT; 73030-LT; 96372; 99283; J1885

== ENCOUNTER 2023-05-06 15:15 | Emergency (ER) | payer MEDICARE ==
[2023-05-06 15:37] VITALS: BP 119/72
[2023-05-06 16:14] LABS: BASOPHILS ABSOLUTE AUTO 0.15 K/uL (0.02-0.10); BASOPHILS PERCENT AUTO 1.7 % (0.0-0.5); EOSINOPHILS ABSOLUTE AUTO 0.46 K/uL (0.04-0.40); EOSINOPHILS PERCENT AUTO 5.1 % (1.0-5.0); HEMATOCRIT 42.4 % (40.0-54.0); HEMOGLOBIN 14.8 g/dL (13.0-18.0); LYMPHOCYTES ABSOLUTE AUTO 1.19 K/uL (1.50-4.00); LYMPHOCYTES PERCENT AUTO 13.3 % (20.0-40.0); MEAN CORPUSCULAR HEMOGLOBIN 29.5 pg (27.0-32.0); MEAN CORPUSCULAR HGB CONC 34.9 g/dL (31.0-35.0); MEAN CORPUSCULAR VOLUME 85 fL (76-96); MEAN PLATELET VOLUME 11.8 fL (6.0-10.0); MONOCYTES ABSOLUTE AUTO 0.95 K/uL (0.20-0.80); MONOCYTES PERCENT AUTO 10.6 % (3.0-10.0); NEUTROPHILS ABSOLUTE AUTO 6.22 K/uL (2.00-7.50); NEUTROPHILS PERCENT AUTO 69.3 % (45.0-70.0); PLATELET COUNT,PLT 220 K/uL (150-400); RED BLOOD CELL COUNT 5.02 M/uL (4.50-6.50); RED CELL DISTRIBUTION WIDTH 13.9 % (11.0-16.0)
[2023-05-06 16:30] LABS: A/G RATIO 1.3 (0.8-2.0); ALBUMIN 3.5 g/dL (3.4-5.0); ANION GAP 13.2 mmol/L (5.0-15.0); BILIRUBIN TOTAL 0.3 mg/dL (0.0-1.0); CALCIUM 8.6 mg/dL (8.5-10.1); CARBON DIOXIDE,CO2 27.2 mmol/L (21.0-32.0); CREATININE 1.5 mg/dL (0.70-1.30); EST CRCL DRUG DOSING (CG) 46.48 mL/min; POTASSIUM,K 4.4 mmol/L (3.5-5.1); PROTEIN TOTAL,TP 6.2 g/dL (6.4-8.2)
[2023-05-06 16:34] VITALS: PULSE 61
== END 2023-05-06 17:00 | disposition home or self-care (01) ==
LOC: LB.ED 15:15
DX: M79.645 Pain in left finger(s) (principal); M79.632 Pain in left forearm; I10 Essential (primary) hypertension; I25.2 Old myocardial infarction; Z95.1 Presence of aortocoronary bypass graft; E78.00 Pure hypercholesterolemia, unspecified; E11.9 Type 2 diabetes mellitus without complications; Z79.4 Long term (current) use of insulin; Z79.899 Other long term (current) drug therapy
CPT/HCPCS: 36415; 80053; 84484; 85025; 93005; 99283